=== PATIENT | male | born 1975 | race Caucasian/White ===

== ENCOUNTER 2016-07-30 13:25 | Emergency (ER) | payer BC ==
[~2016-07-30 13:25] MED LIST: ABACAVIR300 M1; AUGMENTIN 875-1 EAC2 PO; BENADRYL25 M3 PO; CLARITHROMYCIN500 M2 PO; COUMADIN1 M1 PO; COUMADIN5 M2 PO; CYCLOBENZAPRINE10 M1 PO; ERYTHROMYCIN3.5 GM OP; FLEXERIL10 MG PO; HYDROCODON-ACE1 EA15; HYDROCODON-ACE1 EA15 PO; HYDROCODON-ACE1 EA17 PO; IMITREX50 M2 PO; LIPITOR40 M1 PO; LOVENOX80 MG/0.1 SC; MORPHINE SULFAT15 MG PO; MS CONTIN15 M1 PO; MULTIVITAMIN1 TAB; NORCO 10/325 TA1 TAB PO; NORCO 5-325 TA1 EACH PO; NORCO 7.5-3251 EACH PO; OXYCONTIN10 M2 PO; PREDNISONE10 M1 PO; TYLENOL325 M2 PO; XANAX0.5 M1 PO; ZANAFLEX4 M2 PO
[2016-07-30] MEDS ORDERED: LAMISIL250 M1 PO (14:00)
[2016-07-30] MEDS ORDERED: KLONOPIN0.5 M1 PO (14:00)
[2016-07-30] MEDS ORDERED: OXYCODONE HCL5 M1 PO (14:01)
[2016-07-30] MEDS ORDERED: OXYCONTIN20 M2 PO (14:02)
[2016-07-30] MEDS ORDERED: TOPAMAX25 M2 PO (14:02)
[2016-07-30] MEDS ORDERED: DIFLUCAN150 M1 PO (14:04)
[2016-07-30] MEDS ORDERED: BIAXIN500 M2 PO (14:04)
[2016-07-30] MEDS ORDERED: NEURONTIN300 M1 PO (14:05)
[2016-07-30 14:24] LABS: BASO % 0.1 % (0-2); EOS % 3.1 % (0-7); EOSINOPHIL ABSOLUTE COUNT 0.3 tho/cmm (0.0-0.7); HCT-HEMATOCRIT 44.4 % (36.0-53.5); HGB-HEMOGLOBIN 15.5 gm/dl (13.5-17.0); IMMATURE GRANULOCYTES ABSOLUTE 0.02 tho/cmm (0-0.03); IMMATURE GRANULOCYTES PERCENT 0.2 % (0-0.3); LYMPH % 27.8 % (20-45); LYMPH ABSOLUTE COUNT 2.3 tho/cmm (0.8-4.5); MCH (MEAN CORPUSCULAR HGB) 32.1 pg (28.0-32.0); MCHC MEAN CORPUSCULAR HGB CONC 34.9 % (32.0-36.0); MCV (MEAN CELL VOLUME) 91.9 fl (82.0-96.0); MEAN PLATELET VOLUME 10.3 cmc (9.4-12.4); MONOCYTE ABSOLUTE COUNT 0.4 tho/cmm (0.0-1.2); NEUTROPHIL ABSOLUTE COUNT 5.3 tho/cmm (1.6-8.0); NEUTROPHIL-AUTOMATED 5.3 tho/cmm (1.6-8.0); NEUTROPHILS % 63.8 % (40-80); PLATELET COUNT 158 tho/cmm (150-450); RED BLOOD COUNT 4.83 mil/cmm (4.40-5.70); WHITE BLOOD COUNT 8.4 tho/cmm (4.0-10.0)
[2016-07-30 14:28] LABS: INR 2.5 INR (0.9-1.1); PROTHROMBIN TIME 29.8 SECONDS (9.0-13.6)
[2016-07-30 14:38] LABS: ANION GAP 11 mmol/L (0-20); BLOOD UREA NITROGEN 6 mg/dl (6-24); CARBON DIOXIDE-VENOUS 24 mmol/L (22-32); CHLORIDE 107 mmol/l (96-110); CREATININE 0.83 mg/dl (0.60-1.30); GLUCOSE 123 mg/dL (70-110); SODIUM 138 mmol/L (135-145); eGFR VALUE FOR BLACK >90 mL/Min
[2016-07-30 14:40] LABS: POTASSIUM 4.3 mmol/L (3.7-5.1)
== END 2016-07-30 16:03 ==
LOC: EDMED 13:25
PROVIDERS: Emergency Medicine
DX: S09.90XA Unspecified injury of head, initial encounter (principal); Z86.79 Personal history of other diseases of the circulatory system; Z79.01 Long term (current) use of anticoagulants; Z79.899 Other long term (current) drug therapy; W18.09XA Striking against other object with subsequent fall, initial encounter; Y92.019 Unspecified place in single-family (private) house as the place of occurrence of the external cause
CPT/HCPCS: J7030; Q9967